=== PATIENT | female | born 2005 | race Two or more races ===

== ENCOUNTER 2023-04-18 14:56 | Emergency (ER) | payer OTHER ==
[~2023-04-18] VITALS: Ht 160 cm; Wt 53.1 kg
[2023-04-18 15:12] VITALS: BP 127/70
--- NOTE | 2023-04-18 15:15 | NUR ---
C/O LOWER BACK AND HEAD PAIN S/P SLIP AND FALL AT WORK. DENIES LOC.
--- NOTE | 2023-04-18 15:30 | NUR ---
AT BEDSIDE FOR EVAL
[2023-04-18] MEDS ORDERED: CYCLOBENZAPRINE 10 MG TABLET PO ONE (16:30)
[2023-04-18] MEDS ORDERED: IBUPROFEN 400 MG TABLET PO ONE (16:30)
[2023-04-18] MEDS ORDERED: CYCLOBENZAPRINE 10 MG TABLET ONE (16:44)
[2023-04-18] MEDS ORDERED: IBUPROFEN 400 MG TABLET ONE (16:44)
[2023-04-18] MEDS ORDERED: CYCL10TA9 PO (17:59)
--- NOTE | 2023-04-18 18:12 | NUR ---
Patient discharged to home in stable condition. Written and verbal after care instructions given. Patient verbalizes understanding of instruction.
== END 2023-04-18 18:12 | disposition home or self-care (01) ==
LOC: ER 16:58
DX: M54.50 Low back pain, unspecified (principal); Z60.2 Problems related to living alone; W01.0XXA Fall on same level from slipping, tripping and stumbling without subsequent striking against object, initial encounter; Y93.89 Activity, other specified; Y92.89 Other specified places as the place of occurrence of the external cause; Y99.0 Civilian activity done for income or pay
CPT/HCPCS: 72170-TC